=== PATIENT | male | born 1965 | race Caucasian/White ===

== ENCOUNTER → 2021-12-16 | Outpatient (CLI) | payer BC | LOC: CT 14:19 | DX: I75.023 Atheroembolism of bilateral lower extremities (principal); L97.509 Non-pressure chronic ulcer of other part of unspecified foot with unspecified severity; I70.0 Atherosclerosis of aorta; I70.202 Unspecified atherosclerosis of native arteries of extremities, left leg | CPT/HCPCS: 36415; 75635; 82565; 84520; Q9967 ==